=== PATIENT | male | born 1975 | race Caucasian/White ===

== ENCOUNTER 2017-07-22 14:35 | Emergency (ER) | payer SELFPAY ==
[~2017-07-22] VITALS: Ht 167.6 cm; Wt 68.0 kg
[2017-07-22 14:54] VITALS: PULSE 84; RESP 18; O2SAT 99
[2017-07-22 15:00] VITALS: BP 122/83; PULSE 62; RESP 18; TEMP 98.3; O2SAT 97
--- NOTE | 2017-07-22 15:00 | PD ---
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 Location retrosternal. He notes deep inspiration worsens pain. No fever or cough. Duration about an hour. Severity moderate. He denies a personal history of coronary artery disease. History diabetes and hypertension hyperlipidemia or family history of coronary artery disease. There is a distant history of IV drug abuse. [facility] Past Medical History Medical History: Denies Significant Hx Tetanus Vaccination: < 5 Years Past Surgical History Thoracic Surgery: Yes (RODS/PIN/SCREWS RIGHT ANKLE, HIP SX) Social History Alcohol Use: No Tobacco Use: Yes Substance Use: Yes (LAST IV DRUG USE WAS IN MAY 2017) Allergies-Medications (Allergen,Severity, Reaction): Coded Allergies: No Known Drug Allergies (Verified Allergy, Unknown, 07/22/17) Reported Meds & Prescriptions Reported Meds & Active Scripts Active No Active Prescriptions or Reported Medications Review of Systems Except as stated in HPI: all other systems reviewed are Neg General / Constitutional: No: Fever Physical Exam Narrative GENERAL: 42-year-old male well-nourished well-developed SKIN: Focused skin assessment warm/dry. HEAD: Atraumatic. Normocephalic. EYES: Pupils equal and round. No scleral icterus. No injection or drainage. ENT: No nasal bleeding or discharge. Mucous membranes pink and moist. NECK: Trachea midline. No JVD. CARDIOVASCULAR: Regular rate and rhythm. No murmur appreciated. RESPIRATORY: No accessory muscle use. Clear to auscultation. Breath sounds equal bilaterally. GASTROINTESTINAL: Abdomen soft, non-tender, nondistended. Hepatic and splenic margins not palpable. MUSCULOSKELETAL: No obvious deformities. No clubbing. No cyanosis. No edema. NEUROLOGICAL: Awake and alert. No obvious cranial nerve deficits. Motor grossly within normal limits. Normal speech. PSYCHIATRIC: Appropriate mood and affect; insight and judgment normal. Data Data Last Documented VS Vital Signs Date Time Temp Pulse Resp B/P (MAP) Pulse Ox O2 Delivery O2 Flow Rate FiO2 07/22/17 15:00 98.3 62 18 122/83 (96) 97 Room Air Orders Orders Electrocardiogram (07/22/17 14:48) Basic Metabolic Panel (Bmp) (07/22/17 14:48) Ckmb (Isoenzyme) Profile (07/22/17 14:48) Complete Blood Count With Diff (07/22/17 14:48) D-Dimer (07/22/17 14:48) Magnesium (Mg) (07/22/17 14:48) Prothrombin Time / Inr (Pt) (07/22/17 14:48) Act Partial Throm Time (Ptt) (07/22/17 14:48) Troponin I (07/22/17 14:48) Chest, Single Ap (07/22/17 14:48) Ecg Monitoring (07/22/17 14:48) Iv Access Insert/Monitor (07/22/17 14:48) Oximetry (07/22/17 14:48) Oxygen Administration (07/22/17 14:48) CKMB (07/22/17 15:10) CKMB% (07/22/17 15:10) Ed Discharge Order (07/22/17 16:38) Labs Laboratory Tests Test 07/22/17 15:10 White Blood Count 7.6 TH/MM3 Red Blood Count 4.62 MIL/MM3 Hemoglobin 14.7 GM/DL Hematocrit 42.9 % Mean Corpuscular Volume 92.9 FL Mean Corpuscular Hemoglobin 31.8 PG Mean Corpuscular Hemoglobin Concent 34.3 % Red Cell Distribution Width 14.6 % Platelet Count 182 TH/MM3 Mean Platelet Volume 9.8 FL Neutrophils (%) (Auto) 59.4 % Lymphocytes (%) (Auto) 33.5 % Monocytes (%) (Auto) 5.4 % Eosinophils (%) (Auto) 1.3 % Basophils (%) (Auto) 0.4 % Neutrophils # (Auto) 4.5 TH/MM3 Lymphocytes # (Auto) 2.6 TH/MM3 Monocytes # (Auto) 0.4 TH/MM3 Eosinophils # (Auto) 0.1 TH/MM3 Basophils # (Auto) 0.0 TH/MM3 CBC Comment DIFF FINAL Differential Comment Prothrombin Time 10.5 SEC Prothromb Time International Ratio 1.0 RATIO Activated Partial Thromboplast Time 25.4 SEC D-Dimer Quantitative (PE/DVT) 0.36 MG/L FEU Blood Urea Nitrogen 10 MG/DL Creatinine 0.99 MG/DL Random Glucose 97 MG/DL Calcium Level 8.7 MG/DL Magnesium Level 2.3 MG/DL Sodium Level 142 MEQ/L Potassium Level 4.0 MEQ/L Chloride Level 106 MEQ/L Carbon Dioxide Level 29.5 MEQ/L Anion Gap 7 MEQ/L Estimat Glomerular Filtration Rate 83 ML/MIN Total Creatine Kinase 101 U/L Creatine Kinase MB 1.1 NG/ML Troponin I LESS THAN 0.02 NG/ML MDM Medical Decision Making Medical Screen Exam Complete: Yes Emergency Medical Condition: Yes Medical Record Reviewed: Yes Differential Diagnosis NSTEMI, unstable angina, coronary vasospasm, PE, PTX, aortic dissection, pericarditis, myocarditis, endocarditis, PNA, esophageal disease, aneurysm, musculoskeletal etiologies, anxiety, cocaine/sympathomimetic abuse Narrative Course EKG is sinus rate 66 normal axis intervals no acute ischemic injury pattern CBC & BMP Diagram 07/22/17 15:10 Calcium Level 8.7, Magnesium Level 2.3 Tn < 0.02 DDimer 0.34 CXR: NACPD Pt resting comfortably in ER, asleep when I enter the room. Pt ok for discharge home. Diagnosis Primary Impression: Chest pain Qualified Codes: R07.9 - Chest pain, unspecified Med/Other Pt SpecificInfo: No Change to Meds Scripts No Active Prescriptions or Reported Meds Disposition: 01 DISCHARGE HOME Condition: Stable Dat Ceballos MD Jul 22, 2017 15:00
--- NOTE | 2017-07-22 15:10 | RADRPT ---
EXAM DATE/TIME: 07/22/2017 14:49 [facility] COMPARISON: No previous studies available for comparison. INDICATIONS : Lower left chest pain. MEDICAL HISTORY : None. SURGICAL HISTORY : Right ankle ORIF. ENCOUNTER: Initial ACUITY: 1 day PAIN SCORE: 6/10 LOCATION: Left lower chest FINDINGS: Portable AP view of the chest demonstrates a normal-sized cardiac silhouette. No effusion, consolidat ion, or pneumothorax is visualized. The bones and soft tissues demonstrate no acute abnormality. Lung s are underinflated with mild atelectasis at the lung bases. There is a 4 mm metallic BB type structu re overlying the left upper quadrant. CONCLUSION: No acute cardiopulmonary abnormality is identified. Lonnie Verma MD on July 22, 2017 at 15:06 Board Certified Radiologist. This report was verified electronically.
[2017-07-22 15:40] LABS: AUTOMATED NEUTROPHIL # 4.5 TH/MM3 (1.8-7.7); BASOPHIL % 0.4 % (0.0-2.0); EOSINOPHIL # 0.1 TH/MM3 (0-0.4); EOSINOPHIL % 1.3 % (0.0-4.0); HEMATOCRIT 42.9 % (39.0-51.0); HEMO FLAGS DIFF FINAL; LYMPH % 33.5 % (9.0-44.0); LYMPHOCYTE # 2.6 TH/MM3 (1.0-4.8); MEAN CELL VOLUME 92.9 FL (80.0-100.0); MEAN CORPUSCULAR HEMOGLOBIN 31.8 PG (27.0-34.0); MEAN CORPUSCULAR HGB CONC 34.3 % (32.0-36.0); MONO % 5.4 % (0.0-8.0); NEUT % 59.4 % (16.0-70.0); PLATELET COUNT 182 TH/MM3 (150-450); RED BLOOD COUNT 4.62 MIL/MM3 (4.50-5.90); RED CELL DISTRIBUTION WIDTH 14.6 % (11.6-17.2); WHITE BLOOD COUNT 7.6 TH/MM3 (4.0-11.0)
[2017-07-22 15:57] LABS: ANION GAP 7 MEQ/L (5-15); BICARBONATE 29.5 MEQ/L (21.0-32.0); BLOOD UREA NITROGEN 10 MG/DL (7-18); CHLORIDE 106 MEQ/L (98-107); GLOMERULAR FILTRATION RATE 83 ML/MIN (>89); MAGNESIUM 2.3 MG/DL (1.5-2.5); SODIUM (NA) 142 MEQ/L (136-145)
[2017-07-22 16:00] LABS: APTT (PATIENT) 25.4 SEC (24.3-30.1); PROTHROMBIN TIME - PATIENT 10.5 SEC (9.8-11.6)
[2017-07-22 16:02] LABS: CREATINE KINASE 101 U/L (39-308)
[2017-07-22 16:13] LABS: CKMB 1.1 NG/ML (0.5-3.6)
--- NOTE | 2017-07-23 14:43 | EKG ---
Date Performed: 07/22/2017 Time Performed: 14:49:31 PTAGE: 42 years EKG: Sinus rhythm NORMAL ECG NO PREVIOUS TRACING DOCTOR: Kitty Palacios Interpretating Date/Time 07/23/2017 14:39:20
== END 2017-07-22 17:20 | disposition home or self-care (01) ==
LOC: NEPE 14:35
DX: R07.9 Chest pain, unspecified (principal); E11.9 Type 2 diabetes mellitus without complications; I10 Essential (primary) hypertension; E78.5 Hyperlipidemia, unspecified; Z72.0 Tobacco use
CPT/HCPCS: 71010; 80048; 82550; 82552; 83735; 84484; 85025; 85379; 85610; 85730; 93005; 99285